=== PATIENT | male | born 2000 | race Caucasian/White ===

== ENCOUNTER 2025-10-23 17:12 | Emergency (ER) | payer BC, OTHER | END 2025-10-23 18:51 | disposition home or self-care (01) | LOC: NAV ERS 17:12 | DX: S00.03XA Contusion of scalp, initial encounter (principal); S10.93XA Contusion of unspecified part of neck, initial encounter; E03.0 Congenital hypothyroidism with diffuse goiter; W01.10XA Fall on same level from slipping, tripping and stumbling with subsequent striking against unspecified object, initial encounter | CPT/HCPCS: 70450; 72125 ==